=== PATIENT | male | born 1935 ===

== ENCOUNTER 2024-02-17 06:00 | Outpatient (RCR) | payer MEDICARE, SELFPAY | END 2024-02-27 23:59 | disposition home or self-care (01) | LOC: WPT 06:00 | PROVIDERS: Visit Provider Family Medicine | DX: M47.812 Spondylosis without myelopathy or radiculopathy, cervical region (principal); M53.82 Other specified dorsopathies, cervical region | CPT/HCPCS: 97110; 97112; 97161; 97530 ==

== ENCOUNTER 2024-02-28 06:00 | Outpatient (RCR) | payer MEDICARE, SELFPAY | END 2024-03-28 23:59 | disposition home or self-care (01) | LOC: WPT 06:00 | PROVIDERS: Visit Provider Family Medicine | DX: M47.812 Spondylosis without myelopathy or radiculopathy, cervical region (principal); M53.82 Other specified dorsopathies, cervical region | CPT/HCPCS: 97110; 97112; 97140; 97530 ==

== ENCOUNTER 2024-03-29 06:00 | Outpatient (RCR) | payer MEDICARE, SELFPAY | END 2024-04-28 23:59 | disposition home or self-care (01) | LOC: WPT 06:00 | PROVIDERS: Visit Provider Family Medicine | DX: M17.11 Unilateral primary osteoarthritis, right knee (principal); M47.812 Spondylosis without myelopathy or radiculopathy, cervical region; M53.82 Other specified dorsopathies, cervical region | CPT/HCPCS: 97110; 97112; 97140; 97530 ==

== ENCOUNTER 2024-04-29 06:00 | Outpatient (RCR) | payer MEDICARE, SELFPAY | END 2024-05-29 23:59 | disposition home or self-care (01) | LOC: WPT 06:00 | PROVIDERS: Visit Provider Family Medicine | DX: M17.11 Unilateral primary osteoarthritis, right knee (principal); M47.892 Other spondylosis, cervical region | CPT/HCPCS: 97110; 97112; 97530 ==

== ENCOUNTER 2024-05-30 06:00 | Outpatient (RCR) | payer MEDICARE, SELFPAY | END 2024-06-28 23:59 | disposition home or self-care (01) | LOC: WPT 06:00 | PROVIDERS: Visit Provider Family Medicine | DX: M17.11 Unilateral primary osteoarthritis, right knee (principal); M13.88 Other specified arthritis, other site | CPT/HCPCS: 97110; 97112; 97530 ==

== ENCOUNTER 2024-06-29 06:00 | Outpatient (RCR) | payer MEDICARE, SELFPAY | END 2024-07-29 23:59 | disposition home or self-care (01) | LOC: WPT 06:00 | PROVIDERS: Visit Provider Family Medicine | DX: M17.11 Unilateral primary osteoarthritis, right knee (principal); M47.812 Spondylosis without myelopathy or radiculopathy, cervical region | CPT/HCPCS: 97110; 97112; 97530 ==